=== PATIENT | female | born 1995 | race Caucasian/White ===

== ENCOUNTER 2017-08-17 06:27 | Emergency (ER) | payer BC, OTHER, SELFPAY | END 2017-08-17 06:46 | disposition home or self-care (01) | LOC: ERS 06:27 | DX: B34.9 Viral infection, unspecified (principal); J02.9 Acute pharyngitis, unspecified | CPT/HCPCS: 99283 ==

== ENCOUNTER 2017-11-10 08:24 | Emergency (ER) | payer OTHER ==
[2017-11-10 08:56] LABS: #Eosinphils 0.3 thou/uL (0.0-0.7); #Lymphocytes 3.1 thou/uL (1.20-3.40); #Monocytes 0.5 thou/uL (0.11-0.59); #Neutrophils 8.9 thou/uL (1.40-6.50); %Basophils 0.4 % (0.0-1.0); %Lymphocytes 24.4 % (21.0-51.0); %Monocytes 3.6 % (0.0-10.0); %Neutrophils 69.7 % (42.0-75.0); Hemoglobin 14.7 g/dL (12.0-16.0); Mean Corpuscular HGB CONC 34.3 g/dL (32.0-36.0); Mean Corpuscular Hemoglobin 30.3 pg (27.0-31.0); Mean Corpuscular Volume 88.4 fl (81.0-99.0); Mean Platelet Volume 6.9 fL (7.4-10.4); Platelet Count 306 thou/uL (130-400); RBC Distribution Width 11.6 % (11.5-14.5); Red Blood Cell (RBC) Count 4.86 mill/uL (4.20-5.40); White Blood Cell (WBC) Count 12.7 thou/uL (4.8-10.8)
[2017-11-10 09:15] LABS: ALT (SGPT) 31 U/L (8-55); AST (SGOT) 17 U/L (5-34); Albumin 4.9 g/dL (3.5-5.0); Alkaline Phosphatase 82 U/L (40-150); Anion Gap 15 mmol/L (10-20); BUN (Urea Nitrogen) 11 mg/dL (7.0-18.7); Bilirubin, Total 0.9 mg/dL (0.2-1.2); Calc. Creatinine Clearance 0 mL/min (70-130); Calcium 9.9 mg/dL (7.8-10.44); Carbon Dioxide 20 mmol/L (22-29); Chloride 107 mmol/L (98-107); Estimated GFR-MDRD Greater than 90; Globulin 4.1 g/dL (2.4-3.5); Glucose 97 mg/dL (70-105); Potassium 3.7 mmol/L (3.5-5.1); Sodium 138 mmol/L (136-145)
[2017-11-10 10:08] LABS: BHCG - Serum Negative (NEGATIVE); Pregs Control Background? CLEAR/WHITE (CLR/WHITE); Pregs Control Bar Appear? YES (CONTROL BAR)
--- NOTE | 2017-11-10 11:00 | CT ---
CT OF THE ABDOMEN AND PELVIS WITH IV CONTRAST: Date: 11/10/17 INDICATION: Abdominal pain, myalgias, nausea, vomiting, and diarrhea. COMPARISON: None. FINDINGS: The lung bases are clear. There is a focal area of fatty infiltration near the falciform ligament. The pancreas, adrenal glands, and kidneys appear within normal limits. The spleen is normal appearing. There is a normal appendix in the right lower quadrant of the abdomen. There is a 2.4 cm cyst within the right adnexa. The bladder is normal appearing. There is some fluid density seen within the region of the rectum and portions of the colon. No drainable fluid collection is grossly evident. No acute osseous abnormality is evident. IMPRESSION: 1. Some fluid density seen within the region of the rectum and colon can be seen in diarrheal states or mild colitis. There is a normal appendix in the right lower quadrant of the abdomen. 2. Small follicular cyst involving the right adnexa measuring 2.4 cm. 3. Focal fatty infiltration near the falciform ligament. POS: [facility]
[2017-11-10] MEDS ORDERED: ISOVUE-370 76%-LOCM 1 ML ONE (13:11)
== END 2017-11-10 11:28 | disposition home or self-care (01) ==
LOC: ERS 08:24
DX: N83.01 Follicular cyst of right ovary (principal); R11.2 Nausea with vomiting, unspecified; R19.7 Diarrhea, unspecified; J45.909 Unspecified asthma, uncomplicated; Z79.899 Other long term (current) drug therapy
CPT/HCPCS: 74177; 80053; 83690; 84703; 85025; 96360; 96361

== ENCOUNTER 2019-03-08 04:29 | Emergency (ER) | payer OTHER ==
[2019-03-08] MEDS ORDERED: Metoclopramide HCl 10 MG/2 ML VIAL ONE (05:20)
[2019-03-08] MEDS ORDERED: Acetaminophen 500 MG TAB ONE (05:20)
[2019-03-08] MEDS ORDERED: diphenhydrAMINE 50 MG/ML VIAL ONE (05:20)
[2019-03-08] MEDS ORDERED: Ketorolac Tromethamine 30 MG/ML VIAL ONE (05:20)
[2019-03-08 05:24] LABS: Hemoglobin 13.9 g/dL (12.0-16.0); Mean Corpuscular HGB CONC 32.4 g/dL (32.0-36.0); Mean Corpuscular Hemoglobin 29.4 pg (27.0-31.0); Mean Corpuscular Volume 90.6 fL (78.0-98.0); Mean Platelet Volume 7.7 fL (7.4-10.4); Platelet Count 344 thou/uL (130-400); RBC Distribution Width 10.8 % (11.5-14.5); Red Blood Cell (RBC) Count 4.73 mill/uL (4.20-5.40); White Blood Cell (WBC) Count 9.8 thou/uL (4.8-10.8)
[2019-03-08 05:32] LABS: Pregnancy Test - Urine (BHCG) Negative (Negative); Pregu Control Background? CLEAR/WHITE (CLR/WHITE); Pregu Control Bar Appear? YES (CONTROL BAR); Specific Gravity 1.026 (1.002-1.036)
[2019-03-08 05:39] LABS: ALT (SGPT) 26 U/L (8-55); AST (SGOT) 18 U/L (5-34); Albumin 4.7 g/dL (3.5-5.0); Alkaline Phosphatase 60 U/L (40-150); Anion Gap 13 mmol/L (10-20); BUN (Urea Nitrogen) 11 mg/dL (7.0-18.7); Bilirubin, Total 0.6 mg/dL (0.2-1.2); Calc. Creatinine Clearance 0 mL/min (70-130); Calcium 10.2 mg/dL (7.8-10.44); Carbon Dioxide 24 mmol/L (22-29); Chloride 104 mmol/L (98-107); Estimated GFR-MDRD Greater than 90; Globulin 4.2 g/dL (2.4-3.5); Glucose 93 mg/dL (70-105); Potassium 3.5 mmol/L (3.5-5.1); Protein, Total 8.9 g/dL (6.0-8.3); Sodium 137 mmol/L (136-145)
[2019-03-08 05:48] LABS: Band 2 % (5-11); Eosinophils 1 % (0-10); Lymphocytes 60 % (21-51); MDiff Complete? YES; Monocytes 5 % (0-10); Neutrophil 32 % (42-75)
--- NOTE | 2019-03-08 07:53 | CT ---
CTA OF THE HEAD WITH AND WITHOUT CONTRAST AND 3D REFORMATTED IMAGING CTA OF THE NECK WITH IV CONTRAST AND 3D REFORMATTED IMAGING: INDICATION: A 23-year-old female with headache and right-sided numbness. The patient woke with visual changes an d right-sided facial numbness and tingling in the extremities and tongue. COMPARISON: None. FINDINGS: CTA OF THE HEAD WITH AND WITHOUT CONTRAST: No acute infarct, hemorrhage, or hydrocephalus is present. The septum pellucidum and third ventricle are midline. The skull and extracranial soft tissues are normal-appearing. No region of abnormal enhancement is demonstrated. No hemodynamically significant stenosis, occlusi on, or aneurysmal formation is demonstrated. There is a 7 mm sclerotic lesion seen within the [place] of the posterior right ethmoid air cells which can reflect a small osteoma. CTA OF THE NECK WITH IV CONTRAST: No hemodynamically significant stenosis, occlusion, or aneurysmal formation is demonstrated. The vis ualized aerodigestive tract appears within normal limits. No pathologically enlarged lymph nodes are noted. The parotid, submandibular, and thyroid gland is normal appearing. Lung apices are clear. No acute osseous abnormality is demonstrated. IMPRESSION: 1. No hemodynamically significant stenosis, occlusion, or aneurysmal formation. 2. No acute intracranial abnormality. No other areas of abnormal enhancement. 3. Soft tissues of the neck appear within normal limits. POS: [facility]
[2019-03-08] MEDS ORDERED: ISOVUE-370 76%-LOCM 1 ML ONE (13:55)
== END 2019-03-08 06:59 | disposition home or self-care (01) ==
LOC: ERS 04:29
DX: R51 Headache (principal); J45.909 Unspecified asthma, uncomplicated; Z87.442 Personal history of urinary calculi; Z79.899 Other long term (current) drug therapy
CPT/HCPCS: 70496; 70498; 80053; 81025; 85025; 96365; 96375; J1200; J1885; J2765; Q9966